=== PATIENT | male | born 1980 | race Caucasian/White ===

== ENCOUNTER → 2017-11-27 | Day surgery (SDC) | payer OTHER ==
[~2017-11-27] MED LIST: BUPIVACAINE HCL 0.5% INJ 30 ML VIAL INJ ONE; DEXAMETHASONE SOD PHOS INJ 4 MG/ML VIAL ONE; FENTANYL CITRATE/PF 100MCG/2 ML INJ ONE; FISH OIL PO; KETOROLAC TROMETHAMINE 30 MG/ML VIAL ONE; LIDOCAINE HCL 2% LOCAL INJ 5 ML SDV VIAL INJ ONE; MIDAZOLAM HCL 2 MG/2 ML VIAL ONE; MORPHINE SULFATE INJ 10 MG/ML ONE; MUPIROCIN 2% OINT 22 GM TUBE ONE; NEXIUM PO; ONDANSETRON HCL INJ 2 MG/ML VIAL ONE; PROPOFOL IV EMULSION 10 MG/ML 20 ML VIAL ONE; SEVOFLURANE INHAL SOLN 250 ML PEN BTL ONE
[2017-11-27] MEDS: CEFAZOLIN SOD 1 GM VIAL ONE ×2 (06:13→06:15)
--- NOTE | 2017-11-27 10:25 | Operative Report ---
DATE OF PROCEDURE: November 27, 2017 PREOPERATIVE DIAGNOSIS: Right carpal tunnel syndrome. POSTOPERATIVE DIAGNOSIS: Right carpal tunnel syndrome. PROCEDURE PERFORMED: Right endoscopic carpal tunnel release. ANESTHESIA: General. HISTORY: The patient is a 36-year-old, right-hand dominant male with nerve conduction study testing proving the presence of right carpal tunnel syndrome. The risks, benefits and alternatives of treatment were discussed with the patient. He is prepared to undergo the procedures outlined. PROCEDURE: The patient was marked preoperatively in the holding area. He is brought to the operating theater. After the induction of adequate general anesthesia, he was prepped and draped in a supine position. A 1.5 cm incision was marked out over the palmaris longus tendon and extending ulnar-garcia approximately 1.5 to 2 cm from the distal flexion crease of the wrist. The right upper extremity was exsanguinated, and the tourniquet inflated to a pressure of 250 mmHg. Incision was made through the wrist and through the skin and subcutaneous tissues. Venous tributaries were controlled with bipolar cautery. The palmaris longus was identified. Then using scissors, the volar forearm fascia was bluntly entered on the ulnar side of the palmaris longus tendon and the carpal canal was opened. Using a synovial elevator, this was passed underneath the transverse carpal ligament, freeing all of the flexor tenosynovium from the undersurface of the transverse carpal ligament. Several passes were made to denude the ligament of all synovial tissue. At this point, the synovial elevator was used to ascertain the distal extent of the transverse carpal ligament in the palm, and this was then marked out. The synovial elevator was then removed, and the trocar and guide were passed underneath the transverse carpal ligament extending to its distal extent where it was then pushed through the palmar fascia and into the subcutaneous space where it tented the skin of the palm. An exit incision was made with a #15 blade directly over the trocar and guide. Then the trocar and guide were passed out of the skin of the palm. The trocar was removed, and the guide remained. At this point, the endoscope was passed from distal to proximal, verifying the undersurface of the ligament without any adherent structures. At this point, the retrograde hook knife was placed through the proximal portal under direct vision, and it was passed distally until it engaged the distal edge of the transverse carpal ligament under direct vision. At this point, it was brought proximally through the transverse carpal ligament, and verification of the division of the ligament was done with the endoscope. At this point, the retrograde knife, the endoscope and the guide were then removed, and the carpal canal was then irrigated with 10 mL of 0.5% plain Marcaine. The incision in the wrist and the palm were closed with 5-0 nylon in an interrupted horizontal mattress fashion. Tourniquet was deflated. All the fingers pinked up nicely, and a sterile, bulky, conforming bandage was applied. The patient tolerated the procedure well and was brought to the recovery room in satisfactory condition and discharged with a postoperative instruction sheet as well as a followup appointment. Job#: [id number]
== END | disposition home or self-care (01) ==
LOC: OR 05:33
PROVIDERS: ATTEND Plastic Surgery
DX: G56.01 Carpal tunnel syndrome, right upper limb (principal); K21.9 Gastro-esophageal reflux disease without esophagitis
CPT/HCPCS: 29848; J0690; J1100; J1885; J2001; J2250; J2270; J2405